=== PATIENT | male | born 2000 | race American Indian/Alaskan Native ===

== ENCOUNTER 2020-02-22 11:40 | Emergency (ER) | payer SELFPAY ==
[2020-02-22 12:13] VITALS: BP 129/53
--- NOTE | 2020-02-22 13:44 | Emergency Department Report ---
ED General Adult HPI - General Chief complaint: Pain General Stated complaint: RT SIDE PAIN Time Seen by Provider: 02/22/20 13:31 Source: patient Mode of arrival: Ambulatory Limitations: No Limitations - History of Present Illness Initial comments: 19-year-old -[place] Citizen male patient presents with complaints of sudden onset of right-sided chest tightness and shortness of breath x today. Patient states the episode occurred while he was at work and lasted about 45 minutes. He denies any current chest pain, shortness of breath, leg pain/swelling, history of DVT/PE/cancer, recent long travel/surgeries, hemoptysis, or fever/chills/sweats. 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 The pain and tightness occurred suddenly while he was using his right arm today. Social history includes smoking. He denies any other past medical history. Severity scale (0 -10): 8 - Related Data Previous Rx's Medication Instructions Recorded Last Taken Type Diclofenac Sodium 75 mg PO BID PRN 7 Days #14 02/22/20 Unknown Rx tablet. methOCARBAMOL [Robaxin TAB] 1,500 mg PO Q8H PRN #30 tablet 02/22/20 Unknown Rx Allergies Allergy/AdvReac Type Severity Reaction Status Date / Time No Known Allergies Allergy Unverified 02/22/20 12:11 ED Review of Systems ROS: Stated complaint: RT SIDE PAIN Other details as noted in HPI Constitutional: denies: chills, diaphoresis, fever, malaise, weakness Respiratory: denies: cough Cardiovascular: as per HPI Endocrine: denies: excessive sweating Gastrointestinal: denies: abdominal pain, nausea, vomiting Skin: denies: change in color Hematological/Lymphatic: denies: swollen glands ED Past Medical Hx - Past Medical History Previous Medical History?: Yes Additional medical history: bronchitis - Surgical History Past Surgical History?: No - Social History Smoking Status: Current Every Day Smoker Substance Use Type: None - Medications Home Medications: Home Medications Medication Instructions Recorded Confirmed Last Taken Type Diclofenac Sodium 75 mg PO BID PRN 7 Days #14 02/22/20 Unknown Rx tablet.dr mioseOCARBAMOL [Robaxin TAB] 1,500 mg PO Q8H PRN #30 tablet 02/22/20 Unknown Rx ED Physical Exam - General Limitations: No Limitations General appearance: alert, in no apparent distress - Head Head exam: Present: atraumatic, normocephalic - Eye Eye exam: Present: normal appearance. Absent: scleral icterus - ENT ENT exam: Present: mucous membranes moist - Neck Neck exam: Present: normal inspection - Respiratory Respiratory exam: Present: normal lung sounds bilaterally, chest wall tenderness (Tenderness to palpation noted of the right lateral ribs without any deformity or bruising noted; no overlying erythema). Absent: respiratory distress - Cardiovascular Cardiovascular Exam: Present: regular rate, normal rhythm. Absent: systolic murmur, diastolic murmur, rubs, gallop - GI/Abdominal GI/Abdominal exam: Present: soft. Absent: distended, tenderness - Extremities Exam Extremities exam: Present: full ROM - Neurological Exam Neurological exam: Present: alert, oriented X3 - Psychiatric Psychiatric exam: Present: normal affect, normal mood - Skin Skin exam: Present: warm, dry, intact, normal color. Absent: rash, cyanosis, ecchymosis ED Course Vital Signs 02/22/20 12:11 Temperature 98.0 F Pulse Rate 71 Respiratory 18 Rate Blood Pressure 129/53 [Right] O2 Sat by Pulse 100 Oximetry ED Medical Decision Making - Radiology Data Radiology results: report reviewed CHEST 2 VIEWS INDICATION / CLINICAL INFORMATION: Chest pain, shortness of breath. COMPARISON: None available. FINDINGS: SUPPORT DEVICES: None. HEART / MEDIASTINUM: No significant abnormality. LUNGS / PLEURA: No significant pulmonary or pleural abnormality. No pneumothorax. ADDITIONAL FINDINGS: No significant additional findings. IMPRESSION: 1. No acute findings. - Medical Decision Making 19-year-old -[place] Citizen male patient presents with complaints of sudden onset of right-sided chest tightness and shortness of breath x today. Patient states the episode occurred while he was at work and lasted about 45 minutes. He denies any current chest pain, shortness of breath, leg pain/swelling, history of DVT/PE/cancer, recent long travel/surgeries, hemoptysis, or fever/chills/sweats. 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 The pain and tightness occurred suddenly while he was using his right arm today. Social history includes smoking. He denies any other past medical history. Chest x-ray is normal. EKG is normal. Patient had tenderness to palpation of the right rib area. Suspect muscle spasm/costochondritis. Vitals are normal he is well-appearing. Will discharge home with muscle relaxers and anti- inflammatories. Recommend icing of the area and rest. Strict return precautions were discussed in detail with patient who verbalized understanding. Patient to follow-up with primary care within 3 days. Critical care attestation.: If time is entered above; I have spent that time in minutes in the direct care of this critically ill patient, excluding procedure time. ED Disposition Clinical Impression: Muscle spasm, Costochondral chest pain Disposition: TO HOME OR SELFCARE Is pt being admited?: No Condition: Stable Instructions: Muscle Cramps and Spasms, Costochondritis, Chest Pain (ED) Prescriptions: Diclofenac Sodium 75 mg PO BID PRN 7 Days #14 tablet. PRN Reason: pain methOCARBAMOL [Robaxin TAB] 1,500 mg PO Q8H PRN #30 tablet PRN Reason: muscle spasm/tightness Referrals: [facility] [Provider Group] - 3-5 Days
--- NOTE | 2020-02-22 14:27 | XRay Report ---
CHEST 2 VIEWS INDICATION / CLINICAL INFORMATION: Chest pain, shortness of breath. COMPARISON: None available. FINDINGS: SUPPORT DEVICES: None. HEART / MEDIASTINUM: No significant abnormality. LUNGS / PLEURA: No significant pulmonary or pleural abnormality. No pneumothorax. ADDITIONAL FINDINGS: No significant additional findings. IMPRESSION: 1. No acute findings. Signer Name: Vega Driscoll MD Signed: 02/22/2020 2:23 PM Workstation Name: [id number]
== END 2020-02-22 15:31 | disposition home or self-care (01) ==
LOC: ED 11:40
DX: M94.0 Chondrocostal junction syndrome [Tietze] (principal); M62.838 Other muscle spasm; F17.200 Nicotine dependence, unspecified, uncomplicated; Z79.899 Other long term (current) drug therapy
CPT/HCPCS: 71046; 93005; 99283

== ENCOUNTER 2020-10-01 15:59 | Emergency (ER) | payer SELFPAY ==
[2020-10-01 16:45] VITALS: BP 115/58
[2020-10-01 17:08] LABS: Bilirubin,Urine NEG (Negative); Blood,Urine NEG (Negative); Color,Urine Yellow (Yellow); Protein,Urine <15 mg/dL mg/dL (Negative)
[2020-10-01 17:09] LABS: Basophils # (Auto) 0.1 K/mm3 (0.0-0.1); Basophils % (Auto) 0.6 % (0.0-1.8); Eosinophils # (Auto) 0.1 K/mm3 (0.0-0.4); Eosinophils % (Auto) 0.6 % (0.0-4.3); Hematocrit 43.1 % (35.5-45.6); Lymphocytes # (Auto) 2.9 K/mm3 (1.2-5.4); Lymphocytes % (Auto) 30.9 % (13.4-35.0); Mean Corpuscular HGB Conc 35 % (32-34); Mean Corpuscular Volume 93 fl (84-94); Monocytes # (Auto) 0.7 K/mm3 (0.0-0.8); Monocytes % (Auto) 7.4 % (0.0-7.3); Platelet Count 227 K/mm3 (140-440); Red Blood Count 4.65 M/mm3 (3.65-5.03); Red Cell Distribution Width 12.6 % (13.2-15.2)
[2020-10-01 18:22] LABS: Alanine Aminotransferase 10 units/L (7-56); Albumin 4.9 g/dL (3.9-5); BUN/Creatinine Ratio 9; Blood Urea Nitrogen 9 mg/dL (9-20); Calcium 9.5 mg/dL (8.4-10.2); Hemolysis Index 10
[2020-10-01] MEDS ORDERED: ONDANSETRON 4 MG ODT TAB PO ONE (19:52)
[2020-10-01] MEDS ORDERED: FAMOTIDINE 20 MG TAB PO ONE (19:52)
[2020-10-01] MEDS ORDERED: DICYCLOMINE 20 MG TAB PO ONE (19:53)
[2020-10-01] MEDS ORDERED: ACETAMINOPHEN 500 MG TAB PO ONE (20:04)
--- NOTE | 2020-10-01 20:32 | XRay Report ---
XR ribs UNI w PA Chest 3+V RT INDICATION: Rt rib pain. COMPARISON: Chest radiograph 02/22/2020 FINDINGS: No acute skeletal abnormality. No acute pulmonary or pleural findings. IMPRESSION: 1. No acute findings. Signer Name: Mehdi Aleman MD Signed: 10/01/2020 8:28 PM Workstation Name: [id number]
--- NOTE | 2020-10-01 21:42 | Emergency Department Report ---
ED General Adult HPI - General Chief complaint: Abdominal Pain Stated complaint: SIDE PAIN, DIZZY, VOMITING PUI?: No Source: patient Mode of arrival: Ambulatory Limitations: No Limitations - History of Present Illness Initial comments: Patient is a 20-year-old -[place] male with no past medical history presents to the ED with complaint of acute onset persistent right lateral rib pain with nausea and vomiting and epigastric pain as well as lightheadedness for the last 2 days. Patient states that he has had multiple vomiting episodes since the onset of the symptoms. Patient also states that he performs heavy lifting at work and suspect that this rib pain may be from heavy lifting at work but is unsure. Patient denies dizziness, syncope, chest pain, shortness of breath, fever, chills, hematemesis, diarrhea, hematochezia, dysuria, urinary frequency and urgency, testicular pain, cough, hematuria, or headache. MD Complaint: Lightheadedness; nausea and vomiting, right lateral rib pain -: Sudden, days(s) (2) Location: chest (Right lateral rib pain), abdomen Severity scale (0 -10): 7 Quality: aching, sharp Consistency: constant Improves with: none Worsens with: movement Associated Symptoms: denies other symptoms, chest pain (Right lateral rib pain), nausea/vomiting. denies: confusion, cough, diaphoresis, fever/chills, headaches, loss of appetite, malaise, rash, seizure, shortness of breath, syncope, weakness Treatments Prior to Arrival: none - Related Data Previous Rx's Medication Instructions Recorded Last Taken Type Diclofenac Sodium 75 mg PO BID PRN 7 Days #14 02/22/20 Unknown Rx tablet. methOCARBAMOL [Robaxin TAB] 1,500 mg PO Q8H PRN #30 tablet 02/22/20 Unknown Rx Famotidine [Pepcid] 20 mg PO BID #60 tablet 10/01/20 Unknown Rx Naproxen 500 mg PO Q12H PRN #24 tablet 10/01/20 Unknown Rx Ondansetron [Zofran Odt] 4 mg PO Q6HR PRN #15 tab.rapdis 10/01/20 Unknown Rx tiZANidine [Zanaflex 4mg TAB] 4 mg PO Q12H PRN #12 tablet 10/01/20 Unknown Rx Allergies Allergy/AdvReac Type Severity Reaction Status Date / Time No Known Allergies Allergy Unverified 02/22/20 12:11 ED Review of Systems ROS: Stated complaint: SIDE PAIN, DIZZY, VOMITING Other details as noted in HPI Constitutional: denies: chills, fever Eyes: denies: eye pain, eye discharge, vision change ENT: denies: ear pain, throat pain Respiratory: denies: cough, shortness of breath, wheezing Cardiovascular: chest pain (Right lateral rib pain). denies: palpitations Endocrine: no symptoms reported Gastrointestinal: abdominal pain (Mild epigastric pain), nausea, vomiting. denies: diarrhea Genitourinary: denies: urgency, dysuria Musculoskeletal: denies: back pain, joint swelling, arthralgia Skin: denies: rash, lesions Neurological: denies: headache, weakness, paresthesias Psychiatric: denies: anxiety, depression Hematological/Lymphatic: denies: easy bleeding, easy bruising ED Past Medical Hx - Past Medical History Previous Medical History?: Yes Additional medical history: bronchitis - Surgical History Past Surgical History?: No - Social History Smoking Status: Current Every Day Smoker Substance Use Type: None - Medications Home Medications: Home Medications Medication Instructions Recorded Confirmed Last Taken Type Diclofenac Sodium 75 mg PO BID PRN 7 Days #14 02/22/20 Unknown Rx tablet.dr methOCARBAMOL [Robaxin TAB] 1,500 mg PO Q8H PRN #30 tablet 02/22/20 Unknown Rx Famotidine [Pepcid] 20 mg PO BID #60 tablet 10/01/20 Unknown Rx Naproxen 500 mg PO Q12H PRN #24 tablet 10/01/20 Unknown Rx Ondansetron [Zofran Odt] 4 mg PO Q6HR PRN #15 tab.rapdis 10/01/20 Unknown Rx tiZANidine [Zanaflex 4mg TAB] 4 mg PO Q12H PRN #12 tablet 10/01/20 Unknown Rx ED Physical Exam - General Limitations: No Limitations General appearance: alert, in no apparent distress - Head Head exam: Present: atraumatic, normocephalic, normal inspection - Eye Eye exam: Present: normal appearance, PERRL, EOMI Pupils: Present: normal accommodation - ENT ENT exam: Present: normal exam, normal orophraynx, mucous membranes moist, TM's normal bilaterally, normal external ear exam - Neck Neck exam: Present: normal inspection, full ROM - Respiratory Respiratory exam: Present: normal lung sounds bilaterally, chest wall tenderness (Palpable reproducible right lateral rib tenderness). Absent: respiratory distress, wheezes, rales, rhonchi, accessory muscle use, decreased breath sounds, prolonged expiratory - Cardiovascular Cardiovascular Exam: Present: regular rate, normal rhythm, normal heart sounds. Absent: systolic murmur, diastolic murmur, rubs, gallop - GI/Abdominal GI/Abdominal exam: Present: soft, normal bowel sounds. Absent: tenderness, guarding, rebound, hyperactive bowel sounds, hypoactive bowel sounds, organomegaly - Extremities Exam Extremities exam: Present: normal inspection, full ROM, normal capillary refill - Back Exam Back exam: Present: normal inspection, full ROM. Absent: tenderness, CVA tenderness (R), CVA tenderness (L), muscle spasm, paraspinal tenderness, vertebral tenderness - Neurological Exam Neurological exam: Present: alert, oriented X3, CN II-XII intact, normal gait, reflexes normal - Psychiatric Psychiatric exam: Present: normal affect, normal mood - Skin Skin exam: Present: warm, dry, intact, normal color. Absent: rash ED Course Vital Signs 10/01/20 10/01/20 16:44 20:09 Temperature 98.5 F Pulse Rate 69 Respiratory 18 18 Rate Blood Pressure 115/58 [Right] O2 Sat by Pulse 100 Oximetry ED Medical Decision Making - Lab Data Result diagrams: 10/01/20 16:52 10/01/20 16:52 - Radiology Data Radiology results: report reviewed, image reviewed [address] [address] XRay Report Signed Patient: APRIL NAVARRO MR#: [id number] : 2000 Acct:[id number] Age/Sex: 20 / M ADM Date: 10/01/20 Loc: ED Attending Dr: Ordering Physician: SERGEY SCHULTZ Date of Service: 10/01/20 Procedure(s): XR ribs UNI w PA Chest 3+V RT Accession Number(s): [id number] cc: SERGEY SCHULTZ Fluoro Time In Minutes: XR ribs UNI w PA Chest 3+V RT INDICATION: Rt rib pain. COMPARISON: Chest radiograph 02/22/2020 FINDINGS: No acute skeletal abnormality. No acute pulmonary or pleural findings. IMPRESSION: 1. No acute findings. Signer Name: Mehdi Aleman MD Signed: 10/01/2020 8:28 PM Workstation Name: [id number] Transcribed By: ALDO Dictated By: Mehdi Aleman MD Electronically Authenticated By: Mehdi Aleman MD Signed Date/Time: 10/01/202027 DD/ 26 TD/TT: Print Cancel - Medical Decision Making This is a 20-year-old -[place] male with no past medical history presents to the ED with complaint of acute onset persistent right lateral rib pain with nausea and vomiting and epigastric pain as well as lightheadedness for the last 2 days. Patient states that he has had multiple vomiting episodes since the onset of the symptoms. Patient also states that he performs heavy lifting at work and suspect that this rib pain may be from heavy lifting at work but is unsure. In the ED, patient is alert and oriented x3 and is not in any distress. Lab test results were reviewed and are all nonactionable. Patient was treated for pain in the ED and also given antiemetics and antacids. Chest x-ray and rib x-ray showed no acute fractures or subluxations of the ribs, pleural effusion, pneumothorax or any cardiopulmonary abnormalities or pneumonitis. On reevaluation, patient's pain is well controlled medications. Patient has not had any nausea or vomiting in the ED during the ED course of treatment. Patient was therefore discharged home on medications and advised to follow-up with his primary care physician in 5 to 7 days for reevaluation, or return to the ED immediately if symptoms get worse. - Differential Diagnosis Gastroenteritis; muscle strain; GERD; rib contusion; muscle spasm Critical care attestation.: If time is entered above; I have spent that time in minutes in the direct care of this critically ill patient, excluding procedure time. ED Disposition Clinical Impression: Right-sided chest wall pain, Nausea and vomiting in adult GERD (gastroesophageal reflux disease) Qualifiers: Esophagitis presence: esophagitis presence not specified Qualified Code(s): K21.9 - Gastro-esophageal reflux disease without esophagitis Disposition: DC-01 TO HOME OR SELFCARE Is pt being admited?: No Does the pt Need Aspirin: No Condition: Stable Instructions: Chest Wall Pain, [id number], Nausea and Vomiting, Adult, [id number], Nonspecific Chest Pain, Adult, [id number], Gastroesophageal Reflux Disease, Adult, [id number] Additional Instructions: All lab test results were reviewed and are all nonactionable. Chest x-ray with ribs showed no acute rib fractures or subluxations, pleural effusion, pneumothorax or any cardiopulmonary abnormalities or pneumonitis. Your rib pain is most likely due to muscle strain following heavy lifting at work. Therefore take medications with food, drink plenty of fluids and follow-up with your primary care physician in 5 to 7 days for reevaluation. Return to the ED immediately if symptoms get worse. Prescriptions: Naproxen 500 mg PO Q12H PRN #24 tablet PRN Reason: Pain , Severe (7-10) Famotidine [Pepcid] 20 mg PO BID #60 tablet tiZANidine [Zanaflex 4mg TAB] 4 mg PO Q12H PRN #12 tablet PRN Reason: Muscle Spasm Ondansetron [Zofran Odt] 4 mg PO Q6HR PRN #15 tab.rapdis PRN Reason: Nausea Referrals: [facility] [Provider Group] - 3-5 Days Forms: Work/School Release Form(ED) Time of Disposition: 21:46 Print Language: ANGUILLAN
== END 2020-10-01 22:10 | disposition home or self-care (01) ==
LOC: ED 15:59
DX: K21.9 Gastro-esophageal reflux disease without esophagitis (principal); R07.89 Other chest pain; R11.2 Nausea with vomiting, unspecified; F17.200 Nicotine dependence, unspecified, uncomplicated
CPT/HCPCS: 36415; 80053; 81001; 85025; 99283; Q0162